=== PATIENT | male | born 2000 | race American Indian/Alaskan Native ===

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

== ENCOUNTER 2020-05-03 10:12 | Emergency (ER) | payer SELFPAY ==
[2020-05-03 11:07] VITALS: BP 117/71
--- NOTE | 2020-05-03 11:09 | Emergency Department Report ---
ED Male HPI - General Chief complaint: Urogenital-Male Stated complaint: GROIN PAIN Time Seen by Provider: 05/03/20 10:57 Source: patient Mode of arrival: Ambulatory Limitations: No Limitations - History of Present Illness Initial comments: This is a 20-year-old male nontoxic, well in appearance with no signs of distress presents to the ED for dysuria and right groin lymph node enlargement x several days. Patient denies any penile discharge. Denies any testicular pain, or swelling. Patient denies any other urinary symptoms. Patient denies any f ever, chills, headache, nausea, vomiting, chest pain or shortness of breathe. denies any other symptoms or complaints. Denies any allergies or PMH. MD Complaint: dysuria, groin pain (r groin lymph node) Radiation: none Quality: burning Improves with: none Worsens with: urination dysuria. denies: discharge, swelling, mass, rash, urinary retention, blood in urine, fever, nausea/vomiting, incontinence - Related Data Allergies Allergy/AdvReac Type Severity Reaction Status Date / Time No Known Allergies Allergy Verified 12/02/18 12:27 ED Review of Systems ROS: Stated complaint: GROIN PAIN Other details as noted in HPI Comment: All other systems reviewed and negative Constitutional: denies: chills, fever Eyes: denies: eye pain, eye discharge, vision change ENT: denies: ear pain, throat pain Respiratory: denies: cough, shortness of breath, wheezing Cardiovascular: denies: chest pain, palpitations Endocrine: no symptoms reported Gastrointestinal: denies: abdominal pain, nausea, diarrhea Genitourinary: dysuria. denies: urgency, frequency, hematuria, discharge, testicular pain, testicular mass Musculoskeletal: denies: back pain, joint swelling, arthralgia Skin: denies: rash, lesions Neurological: denies: headache, weakness, paresthesias Psychiatric: denies: anxiety, depression Hematological/Lymphatic: denies: easy bleeding, easy bruising ED Past Medical Hx - Past Medical History Previous Medical History?: Yes Hx Asthma: Yes - Surgical History Past Surgical History?: Yes Additional Surgical History: bilateral hip surgery - Social History Smoking Status: Never Smoker Substance Use Type: None ED Physical Exam - General Limitations: No Limitations General appearance: alert, in no apparent distress - Head Head exam: Present: atraumatic, normocephalic - Eye Eye exam: Present: normal appearance - Neck Neck exam: Present: normal inspection, full ROM - Respiratory Respiratory exam: Present: normal lung sounds bilaterally. Absent: respiratory distress - GI/Abdominal GI/Abdominal exam: Present: soft, normal bowel sounds. Absent: distended, tenderness, guarding, rebound, rigid, diminished bowel sounds - Rectal Rectal exam: Present: deferred - exam: Present: normal inspection, other (right groin lymph node slight enlargement). Absent: testicular tenderness, urethral discharge, scrotal swelling, vertical testicular lie, circumcision External exam: Present: normal external exam. Absent: erythema, swelling, lesions, lacerations, ecchymosis, bleeding - Extremities Exam Extremities exam: Present: normal inspection, full ROM - Back Exam Back exam: Present: normal inspection, full ROM - Neurological Exam Neurological exam: Present: alert, oriented X3, normal gait - Psychiatric Psychiatric exam: Present: normal affect, normal mood - Skin Skin exam: Present: warm, dry, intact, normal color. Absent: rash ED Course Vital Signs 05/03/20 05/03/20 05/03/20 10:55 11:00 11:01 Temperature 98.4 F 98.4 F Pulse Rate 76 76 Respiratory 19 20 Rate Blood Pressure 136/87 117/71 O2 Sat by Pulse 100 100 Oximetry Vital Signs 05/03/20 05/03/20 05/03/20 10:55 11:00 11:01 Temperature 98.4 F 98.4 F Pulse Rate 76 76 Respiratory 19 20 Rate Blood Pressure 136/87 117/71 O2 Sat by Pulse 100 100 Oximetry - Reevaluation(s) Reevaluation #1: 05/03/20 11:09 Patient is speaking in full sentences with no signs of distress noted. ED Medical Decision Making - Lab Data Lab Results 05/03/20 Range/Units 11:30 Urine Color Yellow (Yellow) Urine Turbidity Clear (Clear) Urine pH 7.0 (5.0-7.0) Ur Specific [place] 1.016 (1.003-1.030) Urine Protein <15 mg/dl (Negative) mg/dL Urine Glucose (UA) Neg (Negative) mg/dL Urine Ketones Neg (Negative) mg/dL Urine Blood Neg (Negative) Urine Nitrite Neg (Negative) Urine Bilirubin Neg (Negative) Urine Urobilinogen < 2.0 (<2.0) mg/dL Ur Leukocyte Esterase Tr (Negative) Urine WBC (Auto) 5.0 (0.0-6.0) /HPF Urine RBC (Auto) 1.0 (0.0-6.0) /HPF Urine Mucus Few /HPF - Medical Decision Making Patient received rocephn and azith. Patient was instructed to return in 3-5 days for GC results. Patient was instructed to Follow-up with a primary care doctor in 3-5 days or if symptoms worsen and continue return to emergency room as soon as possible. At time of discharge, the patient does not seem toxic or ill in appearance. No acute signs of distress noted. Patient agrees to discharge treatment plan of care. No further questions noted by the patient. Critical care attestation.: If time is entered above; I have spent that time in minutes in the direct care of this critically ill patient, excluding procedure time. ED Disposition Clinical Impression: Possible exposure to STD, Dysuria, Lymph node enlargement Disposition: DC-01 TO HOME OR SELFCARE Is pt being admited?: No Does the pt Need Aspirin: No Condition: Stable Instructions: Safe Sex (ED) Additional Instructions: Follow-up with a primary care doctor in 3-5 days or if symptoms worsen and continue return to emergency room as soon as possible. Referrals: PRIMARY [facility] [Referring] - 3-5 Days RICARDO SOLANO MD [Staff Physician] - 3-5 Days Forms: Work/School Release Form(ED)
[2020-05-03 12:10] LABS: Bilirubin,Urine NEG (Negative); Blood,Urine NEG (Negative); Color,Urine Yellow (Yellow); Mucus,Urine FEW /HPF; Protein,Urine <15 mg/dL mg/dL (Negative); Urobilinogen,Urine < 2.0 mg/dL (<2.0)
[2020-05-03] MEDS ORDERED: LIDOCAINE-MPF (1%) 10 MG/1 ML VIAL 5 ML INFILTRATI ONE (12:23)
[2020-05-03] MEDS ORDERED: AZITHROMYCIN 250 MG TAB PO ONE (12:23)
== END 2020-05-03 12:52 | disposition home or self-care (01) ==
LOC: ED 10:12
DX: R59.9 Enlarged lymph nodes, unspecified (principal); R30.0 Dysuria; J45.909 Unspecified asthma, uncomplicated; Z20.2 Contact with and (suspected) exposure to infections with a predominantly sexual mode of transmission; Z98.890 Other specified postprocedural states
CPT/HCPCS: 81001; 87591; 96372; 99283; J0696

== ENCOUNTER 2022-02-07 09:07 | Emergency (ER) | payer SELFPAY ==
[2022-02-07 09:48] VITALS: BP 112/75
--- NOTE | 2022-02-07 09:53 | Emergency Department Report ---
Chief Complaint: Urogenital-Male Stated Complaint: POSSIBLY STD Time Seen by Provider: 02/07/22 09:47 - HPI History of Present Illness: pt comes to ER for routine STD testing - ROS Review of Systems: concerned that he has recent exposure but no symptoms at this time. NO N/V/D NO ABD PAIN NO BACK PAIN NO DYSURIA NO DISCHARGE NO FEVER OR CHILLS NO TESTICULAR PAIN - Exam Vital Signs: Vital Signs 02/07/22 09:47 Temperature 98.9 F Pulse Rate 53 L Respiratory 14 Rate Blood Pressure 112/75 [Right] O2 Sat by Pulse 100 Oximetry Physical Exam: alert oriented s1s2 lungs cta abd snt MSE screening note: Focused history and physical exam performed. Due to findings the following was ordered: MSE TO OUTPT FOR ROUTINE TESTING PT HAS NO SYMPTOMS ED Disposition for MSE Clinical Impression: Dysuria Disposition: 07 LEFT WITHOUT BEING SEEN Is pt being admited?: No Does the pt Need Aspirin: No Condition: Stable Instructions: Dysuria Referrals: [facility] [Outside] - 3-5 Days Time of Disposition: 09:53
--- NOTE | 2022-02-07 09:57 | Emergency Department Report ---
ED Dysuria HPI - HPI Chief Complaint: Urogenital-Male Stated Complaint: POSSIBLY STD Time Seen by Provider: 02/07/22 09:47 ED Review of Systems ROS: Stated complaint: POSSIBLY STD Other details as noted in HPI Comment: All other systems reviewed and negative ED Past Medical Hx - Past Medical History Previous Medical History?: Yes Hx Asthma: Yes - Surgical History Past Surgical History?: Yes Additional Surgical History: 2 HIP REPLACEMENTS - Social History Smoking Status: Never Smoker Dysuria Exam - Exam General: Vital signs noted. No distress. Alert and acting appropriately. ED Course Vital Signs 02/07/22 09:47 Temperature 98.9 F Pulse Rate 53 L Respiratory 14 Rate Blood Pressure 112/75 [Right] O2 Sat by Pulse 100 Oximetry Critical care attestation.: If time is entered above; I have spent that time in minutes in the direct care of this critically ill patient, excluding procedure time. ED Disposition Condition: Stable
== END 2022-02-07 10:00 | disposition left against medical advice (07) ==
LOC: ED 09:07
DX: R30.0 Dysuria (principal); Z53.21 Procedure and treatment not carried out due to patient leaving prior to being seen by health care provider